=== PATIENT | female | born 1975 | race Caucasian/White ===

== ENCOUNTER 2022-11-01 10:09 | Day surgery (SDC) | payer BC ==
[~2022-11-01 10:09] MED LIST: Lactated Ringers 1,000 ML IV SCH; Sodium Chloride 0.9% 10 ML Syringe FLUSH PRN
[2022-11-01] MEDS ORDERED: Propofol 200 MG/20 ML SDV ONE (10:59)
[2022-11-01] MEDS ORDERED: Midazolam 1 MG/ML 2 ML SDV ONE (10:59)
== END 2022-11-01 12:47 | disposition home or self-care (01) ==
LOC: KA.SDS 10:09
PROVIDERS: ATTEND Surgery
DX: Z12.11 Encounter for screening for malignant neoplasm of colon (principal); R53.83 Other fatigue; E03.9 Hypothyroidism, unspecified; E53.8 Deficiency of other specified B group vitamins; E55.9 Vitamin D deficiency, unspecified; Z88.0 Allergy status to penicillin; Z79.899 Other long term (current) drug therapy; Z87.891 Personal history of nicotine dependence; Z86.32 Personal history of gestational diabetes; Z20.822 Contact with and (suspected) exposure to COVID-19
CPT/HCPCS: 00812; 45378; 81025; J2250; J2704; J7120